=== PATIENT | female | born 1985 | race Caucasian/White ===

== ENCOUNTER → 2020-02-17 | Outpatient (CLI) | payer OTHER ==
[2020-02-17 13:31] LABS: Basophils % (A) 0 %; Eosinophils # (A) 0.1 k/uL (0-0.7); Eosinophils % (A) 1 %; HCT 40.3 % (34.0-46.0); HGB 13.1 gm/dL (11.4-16.0); Lymphocytes # (A) 1.7 k/uL (1.0-4.8); Lymphocytes % (A) 23 %; MCH 29.6 pg (25.0-35.0); MCHC 32.4 g/dL (31.0-37.0); MCV 91.4 fL (80.0-100.0); Mean Platelet Volume 7.4; Monocytes # (A) 0.4 k/uL (0-1.0); Monocytes % (A) 5 %; Neutrophils # (A) 5.1 k/uL (1.3-7.7); Neutrophils % (A) 69 %; Platelet Count 334 k/uL (150-450); RBC 4.41 m/uL (3.80-5.40); RDW 13.8 % (11.5-15.5); WBC 7.4 k/uL (3.8-10.6)
== END | disposition home or self-care (01) ==
LOC: LABWHC1 11:54
PROVIDERS: ATTEND Obstetrics & Gynecology Obstetrics
DX: Z01.818 Encounter for other preprocedural examination (principal); N92.0 Excessive and frequent menstruation with regular cycle; N94.6 Dysmenorrhea, unspecified; N84.0 Polyp of corpus uteri
CPT/HCPCS: 36415; 85025

== ENCOUNTER 2020-02-27 09:51 | Day surgery (SDC) | payer OTHER ==
[2020-02-23 14:05] VITALS: BMI 18.6
[~2020-02-27 09:51] MED LIST: DEXAMETHASONE SOD PHOSPHATE 10 MG/ML 1 ML VIAL IV ONE; HYDROmorphone 0.5 MG/0.5 ML SYRINGE IVP PRN; LACTATED RINGERS 1,000 ML IV SCH; LIDOCAINE 1% (10MG/ML) FOR IV START INTRADERMA PRN; ONDANSETRON 4 MG/2 ML VIAL IVP ONE; Pre Op ABX Message 1 EACH MISC MISCELLANE ONE; SCOPOLAMINE 1.5MG/72HR PATCH TRANSDERM ONE
[2020-02-27] MEDS ORDERED: LACTATED RINGERS 1,000 ML IV ONE (10:15)
[2020-02-27] MEDS ORDERED: ONDANSETRON 4 MG/2 ML VIAL ONE (10:34)
[2020-02-27] MEDS ORDERED: LIDOCAINE 1% (10MG/ML) FOR IV START INTRADERMA ONE (10:46)
[2020-02-27] MEDS ORDERED: MIDAZOLAM 2 MG/2 ML VIAL ONE (11:22)
[2020-02-27] MEDS ORDERED: fentaNYL (PF) 50 MCG/ML 2 ML AMP ONE (11:22)
[2020-02-27] MEDS ORDERED: PROPOFOL 10 MG/ML 20 ML VIAL IV ONE (11:22)
[2020-02-27] MEDS ORDERED: LIDOCAINE 1% INJ 10MG/ML (20 ML MDV) ONE (11:22)
[2020-02-27] MEDS ORDERED: KETOROLAC 30 MG/ML 1 ML VIAL ONE (11:22)
[2020-02-27] MEDS ORDERED: SILVER NITRATE APPLICATOR 1 EACH STICK..EA. TOPICAL ONE (11:51)
--- NOTE | 2020-02-27 11:55 | P.OP ---
Date of Procedure: 02/27/20 Anesthesia: MAC Estimated Blood Loss (ml): 5 IV fluids (ml): 500 Urine output (ml): 40 Pathology: other (Endometrial curettings) Condition: stable Disposition: PACU Indications for Procedure: This pleasant 34-year-old 1 para 1 with complaints of menorrhagia elects endometrial ablation. Patient was offered IUD in addition patient elects the ablation procedure. Procedures reviewed and patient states understanding and wishes to proceed. Operative Findings: Normal proliferative and Mayda cavity Description of Procedure: Patient was seen in the preoperative area and informed consent is obtained. Procedure was reviewed questions are answered. Patient was taken back to the operating suite where general anesthesia was obtained without difficulty by the anesthesia department. She was prepped and draped in normal sterile fashion in the dorsal lithotomy system. Of latex free catheter was used to drain the bladder clear yellow urine, a weighted speculum was placed in the posterior vaginal vault the anterior lip of the cervix is visualized and grasped with a single-tooth tenaculum. Endocervical canal was then serially dilated and a hysteroscope was placed through the cervix and toward the endometrial cavity. A normal-appearing and Mayda cavity which is proliferative nature was noted. The cavity was noted to be intact. Pictures were taken and the hysteroscope was removed. The NovaSure device was opened after a sharp curettage was performed until gritty texture was noted in all 4 quadrants of the nasal cavity. The specimen was sent to pathology for analysis. The NovaSure device was set the appropriate measurements of the patient's cavity length of 4, width of 3.8, power of 84 with a total cycle length of 1 minute 30 seconds. Prior to the cycle cavity assessment was passed. After the cycle was complete the NovaSure device was taken out of the uterine cavity without difficulty. The single-tooth tenaculum was taken off of the anterior lip of the cervix hemostasis was appreciated. All counts are correct 2 patient tolerated procedure well and was taken the recovery room awake in stable condition.
[2020-02-27 12:09] VITALS: TEMP 97.7
[2020-02-27 13:38] VITALS: BP 144/86; PULSE 63; RESP 18
== END 2020-02-27 14:14 | disposition home or self-care (01) ==
LOC: OR 09:51
PROVIDERS: ATTEND Obstetrics & Gynecology Obstetrics
DX: N84.0 Polyp of corpus uteri (principal); F41.9 Anxiety disorder, unspecified; Z79.3 Long term (current) use of hormonal contraceptives
CPT/HCPCS: 81025; 88305; 58563; J2250; J1100; J2405; J2001; J3010; J1885; J2704